=== PATIENT | female | born 1940 | race Asian ===

== ENCOUNTER → 2017-03-14 | Day surgery (SDC) | payer MEDICARE ==
[~2017-03-14] VITALS: Ht 157.5 cm; Wt 59.9 kg
[2017-03-14] VITALS (11 sets, daily range): BP systolic 101–176; BP diastolic 71–97
[~2017-03-14] MED LIST: Betadine 10% Oint 15gm TOPIC ONE; Betamethasone Sod Phos/Acetate 6 MG/ML INJ ONE; Bupivacaine 0.5% Inj 30 ml vial INJ ONE; CYTOMEL5 MCG ORAL; Clindamycin 6 ML ONE; DYAZIDE 37.5-21 EACH PO; DiphenhydrAMINE 50mg/ml Inj IVP PRN; DiphenhydrAMINE 50mg/ml Inj ONE; Hydromorphone 0.5mg/0.5ml inj IVP PRN; LR 1000ml 1,000 ML IVLG SCH; LR 1000ml ONE; Labetalol 5mg/ml 20ml vial IV ONE; Labetalol 5mg/ml 20ml vial IV PRN; Lidocaine 1% MPF 10mg/ml 5ml ONE; Lidocaine 2% MPF 5ml Vial INJ ONE; NS Irrig 4000ml IRRIG ONE; OMEPRAZOLE20 M2 ORAL; POTASSIUM CHLO20 ME3 PO; Propofol 10mg/ml 20ml IV ONE; Sterile Water Irrig 1000ml IRRIG ONE; WESTHROID ORAL; fentaNYL 100 mcg/2 mL IV ONE; fentaNYL 100 mcg/2 mL IV PRN
--- NOTE | 2017-03-14 07:10 | Pre-Procedure Note/Attestation ---
Pre-Procedure Note/Attestation Complete Prior to Procedure Planned Procedure: right Procedure Narrative: 1. Bunionectomy with osteotomy and hardware fixation right foot 2 Hammertoe correction with hardware fixation right 2nd toe 3. Hammertoe correction with hardware fixation right 3rd toe. Indications for Procedure Pre-Operative Diagnosis: Chronic painful right foot bunion and hammertoes 2nd/3rd for years with failed conservative care. Attestation I attest that I discussed the nature of the procedure; its benefits; risks and complications; and alternatives (and the risks and benefits of such alternatives ), prior to the procedure, with the patient (or the patient's legal bilingual call center representative). I attest that, if there was a reasonable possibility of needing a blood transfusion, the patient (or the patient's legal bilingual call center representative) was given the [place] [employer] standardized written summary, pursuant to the Avi Badger Blood Safety Act ([place] Health and Safety Code # 1645, as amended). I attest that I re-evaluated the patient just prior to the surgery and that there has been no change in the patient's H&P, except as documented below: GINA CORDOVA Mar 14, 2017 07:10
--- NOTE | 2017-03-14 07:14 | Anethesia Preoperative Eval ---
Anesthesia Pre-op PMH/ROS General Date of Evaluation: Mar 14, 2017 Anesthesiologist: Kunal ASA Score: ASA 3 Mallampati Score Class I : Soft palate, uvula, fauces, pillars visible Class II: Soft palate, uvula, fauces visible Class III: Soft palate, base of uvula visible Class IV: Only hard plate visible Mallampati Classification: Class III Surgeon: Danyelle Diagnosis: Right foot bunion and 2nd and 3rd hammertoe Surgical Procedure: Right foot bunionectomy and 2nd and 3rd hammertoe correction Anesthesia History: none Family History: no anesthesia problems Allergies: Coded Allergies: METHOHEXITAL (Unverified Allergy, Severe, Shortness of Breath, 03/13/17) NAPROXEN (Verified Allergy, Severe, Hives, 03/13/17) HIVES PENICILLINS (Verified Allergy, Severe, 03/13/17) anaphylactic shock ASPIRIN (Verified Allergy, Intermediate, 03/13/17) RINGING OF EARS MIDAZOLAM (Verified Allergy, Intermediate, Hives, 03/13/17) HIVES, SHORT TERM MEMORY LOSS Uncoded Allergies: sodium brevital (Allergy, Severe, Shortness of Breath, 03/13/17) Medications: see eMAR Past Medical History Cardiovascular: Reports: HTN, other - HLD, Denies: CAD, [place], arrhythmia, valve dz Pulmonary: Reports: RUSSELL, Denies: COPD, asthma, other Gastrointestinal/Genitourinary: Reports: GERD, Denies: CRI, ESRD, other Neurologic/Psychiatric: Reports: other - h/o migraines, Denies: CVA, TIA, dementia, depression/anxiety Endocrine: Reports: hypothyroidism, Denies: DM, other, steroids HEENT: Denies: SLEETMUTE (L), SLEETMUTE (R), cataract (L), cataract (R), glaucoma, other Hematology/Immune: Reports: anemia - chronic, Denies: DVT, bleeding disorder, other Musculoskeletal/Integumentary: Reports: OA, other - lumbar and cervical stenosis, Denies: DDD, DJD, RA, edema PSxH Narrative: lap stuart, ERCP. WILLI Anesthesia Pre-op Phys. Exam Physician Exam Last Vital Signs Date Time Temp Pulse Resp B/P Pulse Ox O2 Delivery O2 Flow Rate FiO2 03/14/17 06:02 97.3 88 18 156/96 98 Room Air Constitutional: NAD Cardiovascular: RRR Respiratory: CTA Airway Exam Mallampati Score: Class III MO: limited ROM: limited Teeth: intact Anesthesia Pre-op A/P Labs see chart Studies Pre-op Studies: EKG - sr Risk Assessment & Plan Assessment: ASA III Plan: MAC Status Change Before Surgery: No Pre-Antibiotics Drug: Clindamycin 900mg Given Within 1 Hr of Incision: Yes Time Given: 07:45 SCOTTY CULVER M.D. Mar 14, 2017 07:14
--- NOTE | 2017-03-14 11:01 | Immediate Post-Op Evaluation ---
Immediate Post-Op Evalulation Immediate Post-Op Evalulation Procedure: Right foot bunionectomy and 2nd and 3rd hammertoe correction Date of Evaluation: Mar 14, 2017 Time of Evaluation: 11:01 IV Fluids: 1.2L Blood Products: 0 Estimated Blood Loss: 25 Urinary Output: 0 Blood Pressure Systolic: 156 Blood Pressure Diastolic: 87 Pulse Rate: 80 Respiratory Rate: 16 O2 Sat by Pulse Oximetry: 100 Temperature (Fahrenheit): 97 Pain Score (1-10): 0 Nausea: No Vomiting: No Complications 0 Patient Status: awake, reacts, patent, none Hydration Status: adequate Drug: Clindamycin 900mg Given Within 1 Hr of Incision: Yes Time Given: 07:45 SCOTTY CULVER M.D. Mar 14, 2017 11:01
--- NOTE | 2017-03-14 12:28 | Diagnostic Imaging Report ---
Indications: Right foot pain, bunionectomy Technique: The procedure including fluoroscopy performed by Dr. Bassett. Portable intraoperative AP and lateral spot film images of the right midfoot and forefoot performed. Findings: Comparison: None Osteotomy has been performed through the medial margin of the first metatarsal head and neck. K wires bridge the first metatarsal, second and third digital rays. IMPRESSION: Surgical changes as described
[2017-03-15 06:45] VITALS: BP 145/79
--- NOTE | 2017-03-15 06:45 | 48 Hour Post Anesthesia Eval ---
Post Anesthesia Evaluation Procedure: Right foot bunionectomy and 2nd and 3rd hammertoe correction Date of Evaluation: Mar 14, 2017 Time of Evaluation: 13:23 Blood Pressure Systolic: 145 0: 79 Pulse Rate: 87 Respiratory Rate: 18 Temperature (Fahrenheit): 97.8 O2 Sat by Pulse Oximetry: 98 Airway: patent Nausea: No Vomiting: No Pain Intensity: 0 Hydration Status: adequate Cardiopulmonary Status: at baseline Mental Status/LOC: patient returned to baseline Post-Anesthesia Complications: 0 Follow-up care needed: ready to discharge SCOTTY CULVER M.D. Mar 15, 2017 06:45
--- NOTE | 2017-03-15 22:38 | Operative Note - Dictated ---
DATE OF OPERATION: 03/14/2017 SURGEON: Abilio Bassett D.P.M. ANESTHESIOLOGIST: Dr. Syed. ANESTHESIA TYPE: Monitored anesthesia control with local anesthetic. PREOPERATIVE DIAGNOSES: 1. Painful right foot bunion deformity, which failed conservative care for years, chronic pain and recurrent pain. 2. Painful hallux toe deformity of second toe. 3. . PROCEDURES PERFORMED: 1. . 2. Hammer toe repair of the second right foot. 3. Hammer toe repair of the third toe, right foot. INCOMPLETE DICTATION Abilio Bassett DPM DR: TESSA JOB#: [id number] CC:
--- NOTE | 2017-03-18 10:28 | Operative Note - Dictated ---
DATE OF OPERATION: 03/14/2017 SURGEON: Abilio Bassett DPM ANESTHESIOLOGIST: Dr. Syed. ANESTHESIA TYPE: Monitored anesthesia control with local anesthetic. PREOPERATIVE DIAGNOSES: 1. Painful bunion deformity, right foot, chronic, recurrent, with failed conservative care. 2. Painful hammertoe deformity, right second toe. 3. Painful hammertoe deformity, third toe, right foot. POSTOPERATIVE DIAGNOSES: 1. Painful bunion deformity, right foot, chronic, recurrent, with failed conservative care. 2. Painful hammertoe deformity, right second toe. 3. Painful hammertoe deformity, third toe, right foot. PROCEDURES PERFORMED: 1. Bunionectomy with osteotomy with hardware fixation, right first metatarsal. 2. Hammertoe repair and arthroplasty with K-wire fixation, second toe, right foot. 3. Hammertoe correction and arthroplasty of the third toe with K-wire fixation. DESCRIPTION OF PROCEDURE: Under mild sedation, the patient was brought into the operating room, placed on the operating table in the supine position. Approximately 15 mL of 2% lidocaine plain given in a Zelaya block fashion about the base of the first metatarsal of the left foot and base of the second toe and third toe. The patient was given clindamycin preop by the anesthesiologist. Next, a well-padded ankle tourniquet was inflated to 250 mmHg for hemostasis. The foot was draped and prepped in the usual Betadine and sterile technique. Attention was directed to the dorsal and medial aspects of the first metatarsophalangeal joint, and the lateral deviation of the hallux was noted abutting the second and third toes. The second toe is contracted at the proximal interphalangeal joint as well as the third. The patient reports pain on top of the toes as well as the first big toe joint. Attention directed over the dorsal medial aspect of the first MPJ, a longitudinal incision was placed over the first metatarsophalangeal joint. Incision was deepened through sharp and blunt dissection with care to protect and retract all neural structures. Vascular structures could not be retracted or ligated as necessary. Next, a longitudinal capsulotomy was performed over the dorsal medial aspect of the first MPJ and exposing the underlying bunion deformity. The capsule was then from the dorsal aspect as well as the medial and distal aspects of the metatarsal head with care to protect the dorsal plica. Next, a longitudinal dorsal capsulotomy performed to expose the underlying bone. The dorsal capsule and capsule attachments were from the bone dorsally, medially, and on the plantar aspect with care to protect the dorsal plicae. Next, utilizing a sagittal saw, the medial eminence of the first metatarsal was resected, and utilizing a 62 blade, the lateral capsule of the first metatarsophalangeal joint was released of all of these contractures and the hallux was noted to be able to return to its rectus position and the bunion deformity was noted to have reduced. Using a sagittal saw, a V-type Chevron osteotomy was performed with the apex distally, dorsal proximal and plantar proximal. Then, the capsular fragment head piece was translated laterally in an attempt to correct for the IM angle. The capital fragment was rotated laterally about 2 mm and noted a plantar flexion of the first metatarsal as well. Utilizing the FluoroScan, a 0.062 K-wire was placed to fixate the osteotomy and the FluoroScan confirmed its placement and there was no protrusion and it has been adequately placed. Next, utilizing a sagittal saw, the medial eminence was further removed and smoothed with a reciprocating rasp. The wound was then flushed with copious amount of sterile normal saline. Capsular attachments were reapproximated with 2-0 PDS, and the underlying skin was reapproximated with 4-0 Vicryl, and the underlying skin was reapproximated with 5-0 Prolene. Attention is directed over the second dorsal aspect of the second toe. The contracture of the hammertoe was noted. A longitudinal incision on the skin was placed. The incision was deepened and care was taken to protect all neurovascular structures. A dorsal capsulotomy was performed over the second metatarsophalangeal joint with McGlamry Scoop to release all capsular and ligamentous attachments, medial and lateral, and the metatarsophalangeal joint release . A longitudinal capsulotomy was performed over the dorsal aspect of the proximal phalanx and the middle phalanx to expose the proximal interphalangeal joint. A small portion of the head of the proximal phalanx and the base of the intermediate phalanx were transected utilizing the sagittal saw. Pieces were then realigned with a K-wire going from proximal to distal and retrograded back into the proximal phalanx and alignment was achieved with adequate bone contact of the proximal phalanx and the base of the intermediate phalanx. Then, the K-wire was retrograded back to the metatarsal head, second, with a 0.062 K-wire. Adequate alignment was achieved with the in the same the second metatarsal. Utilizing interval FluoroScan, the adequate alignment and the placement of the pin is ascertained and noted to be adequate. The pin was then at the tip bent, cut, and covered with cover. Overlying capsule were reapproximated with 4-0 Vicryl and skin was reapproximated with 4-0 Vicryl as well as an interlocking stitch utilizing 5-0 nylon. Attention was directed over the dorsal aspect of the third toe where a similar surgical procedure was performed. A longitudinal incision placed over the third proximal interphalangeal joint extending back to the metatarsophalangeal joint. Attention is taken to protect and retract all neurovascular structures. The structures that could not be protected were ligated as necessary. The capsulotomy was performed over the dorsal aspect to expose the metatarsophalangeal joint as well as the proximal interphalangeal joint. Using a McGlamry screw, the medial and lateral capsular attachments were released and the incision was then carried to the dorsal aspect of the proximal interphalangeal joint. All capsular attachments were detached from the head of proximal phalanx as well as the base of the intermediate phalanx. Next, utilizing a sagittal saw, the head of the proximal phalanx and the base of the intermediate phalanx were resected, and in similar fashion, a 0.062 K-wire was used to realign the proximal phalanx and the intermediate phalanx. The pin was then retrograded back through the proximal phalanx and through the third metatarsal in accordance with the third declination angle. Utilizing the FluoroScan, the alignment and placement of the pin was ascertained to be adequate, and there is through the proximal interphalangeal joint or what used to be the proximal interphalangeal joint. Now the pin is bent, cut, and cap was placed. Overlying capsule was reapproximated with 4-0 Vicryl and underlying skin was reapproximated with 4-0 Vicryl and an interlocking stitch utilizing 5-0 nylon. The postoperative injection was given. Approximately 0.5% Marcaine mixed with 1 mL betamethasone infiltrated in the similar fashion as before the preop. Approximately 17 mL of such mixture was used. Next, the foot was dressed with Xeroform, Betadine soaked 4x4s, Cynthia, and a compressive Coban dressing, and the tourniquet was released, and all digits have retained their vascularity as noted by the hyperemic response to all digits. The patient tolerated the procedure well left the OR with vital signs stable in care of the anesthesiologist. The patient was given strict instructions not to weight bear and the patient was sent to Physical Therapy for walker evaluation and . The patient will be contacted and follow up in the office in approximately one week and is to keep the foot elevated and take pain medications as necessary. Abilio Bassett DPM DR: DARIO JOB#: [id number] CC:
== END | disposition home or self-care (01) ==
LOC: SUR 05:35 → EDBD 07:30
DX: M21.611 Bunion of right foot (principal); M20.41 Other hammer toe(s) (acquired), right foot; I10 Essential (primary) hypertension; E78.5 Hyperlipidemia, unspecified; G47.33 Obstructive sleep apnea (adult) (pediatric); D64.9 Anemia, unspecified; M19.90 Unspecified osteoarthritis, unspecified site; M48.06 Spinal stenosis, lumbar region; M48.02 Spinal stenosis, cervical region; K21.9 Gastro-esophageal reflux disease without esophagitis; E03.9 Hypothyroidism, unspecified; Z90.49 Acquired absence of other specified parts of digestive tract; Z90.710 Acquired absence of both cervix and uterus; Z88.6 Allergy status to analgesic agent; Z88.4 Allergy status to anesthetic agent; Z88.0 Allergy status to penicillin
CPT/HCPCS: 28285; 28295; 73660; 76001; 97161; G8978; G8979; G8980; J0360; J0702; J1170; J1200; J2704; J3010; J3490; J7120; S0077; 94003; 94150